=== PATIENT | female | born 1985 | race Caucasian/White ===

== ENCOUNTER 2017-05-12 09:32 | Emergency (ER) | payer BC, OTHER ==
[2017-05-12 09:39] VITALS: BP 102/54
--- NOTE | 2017-05-12 10:13 | UC ---
Lower Extremity/Ankle HPI - HPI Summary HPI Summary: 31 y/o female presents to the urgent care c/o RT ankle pain s/p twisting her ankle after feeding her baby at 0400 am. Pain now is 6/10 specially w/ ambulation and swelling. Pt took an Advil after it happened which helped w/ her pain. Pt is walking with the help of a cane. Pt denies SOB, chest pain, fever, N/V/D. - History of Current Complaint Chief Complaint: UCLowerExtremity Stated Complaint: ANKLE INJURY Time Seen by Provider: 05/12/17 10:10 Hx Obtained From: Patient Hx Last Menstrual Period: nursing ?: No Onset/Duration: Sudden Onset, Lasting Hours, Still Present Severity Initially: Moderate Severity Currently: Moderate Pain Intensity: 6 Pain Scale Used: 0-10 Numeric Aggravating Factor(s): Ambulation Alleviating Factor(s): Rest Able to Bear Weight: Yes - Risk Factors Gout Risk Factors: Negative DVT Risk Factors: Negative Septic Arthritis Risk Factor: Negative - Allergies/Home Medications Allergies/Adverse Reactions: Allergies Allergy/AdvReac Type Severity Reaction Status Date / Time Doxycycline Allergy Intermediate Rash Verified 07/15/16 09:04 PMH/Surg Hx/FS Hx/Imm Hx Previously Healthy: Yes - Surgical History Surgical History: None - Family History Known Family History: Positive: Hypertension, Diabetes - Social History Occupation: Unemployed Lives: With Family Alcohol Use: None Substance Use Type: None Smoking Status (MU): Never Smoked Tobacco Have You Smoked in the Last Year: No - Immunization History Most Recent Influenza Vaccination: 07/09/16 Most Recent Tetanus Shot: 04/24/16 Most Recent Pneumonia Vaccination: none Review of Systems Constitutional: Negative Skin: Negative Eyes: Negative ENT: Negative Respiratory: Negative Cardiovascular: Negative Gastrointestinal: Negative Genitourinary: Negative Motor: Negative Neurovascular: Negative Musculoskeletal: Other: - RT ankle pain s/p twisting ankle Neurological: Negative Psychological: Negative All Other Systems Reviewed And Are Negative: Yes Physical Exam Triage Information Reviewed: Yes Appearance: Well-Appearing, No Pain Distress, Well-Nourished, Cachectic Vital Signs: Initial Vital Signs Temp 98 F 05/12/17 09:36 Pulse 63 05/12/17 09:36 Resp 16 05/12/17 09:36 BP 102/54 05/12/17 09:36 Pulse Ox 100 05/12/17 09:36 Vital Signs Reviewed: Yes Eye Exam: Normal Eyes: Positive: Conjunctiva Clear - PERRLA, EOMI, findi grossly normal ENT Exam: Normal ENT: Positive: Normal ENT inspection, Hearing grossly normal, Pharynx normal, TMs normal Dental Exam: Normal Neck exam: Normal Neck: Positive: Supple, Nontender, No Lymphadenopathy Respiratory Exam: Normal Respiratory: Positive: Chest non-tender, Lungs clear, Normal breath sounds Cardiovascular Exam: Normal Cardiovascular: Positive: RRR, No Murmur, Pulses Normal, Brisk Capillary Refill Abdominal Exam: Normal Abdomen Description: Positive: Nontender, No Organomegaly, Soft. Negative: CVA Tenderness (R), CVA Tenderness (L) Bowel Sounds: Positive: Present Musculoskeletal: Positive: Strength Intact, ROM Limited @ - RT ankle w/ tenderness and edema on palpation over the lateral malleolus and above the tallus bone. Limited ROM due to pain, Positive sensation and capillary refill and pulses are WNL. Neurological Exam: Normal Psychological Exam: Normal Skin Exam: Normal Lower Extremity Course/Dx - Course Course Of Treatment: 31 y/o female presents to the urgent care c/o RT ankle pain s/p twisting her ankle after feeding her baby at 0400 am. Hx obtained. PE abnormal findings:RT ankle w/ tenderness and edema on palpation over the lateral malleolus and above the tallus bone. Limited ROM due to pain, Positive sensation and capillary refill and pulses are WNL. RT ankle X-ray ordered, Impression: normal radiograh. Pt's ankle immobilized w/ an ankle soft gel splint and given crutches. Advised RICE and if symptoms do not improve to f/u with PCP or orthopedic in 1 week. Pt understood and agreed and left the clinic ambulating w/ the help of crutches - Differential Dx/Diagnosis Differential Diagnosis/HQI/PQRI: Contusion, Dislocation, Fracture (Closed), Sprain, Strain Provider Diagnoses: 1- RT ankle sprain Discharge - Discharge Plan Condition: Stable Disposition: HOME Prescriptions: Ibuprofen TAB* [Motrin TAB* 800 MG] 800 mg PO Q6H #30 tab Patient Education Materials: Ankle Sprain (ED) Referrals: [facility] – [place] [facility] [Outside] - 1 Week Monty Fuentes MD [Medical Doctor] - If Needed No Primary Care Phys,NOPCP [Primary Care Provider] - Additional Instructions: 1- Please take ibuprofen q6-8hrs prn after meals for 2-3 days to alleviate pain and swelling. 2-continue placing ice, rest and elevate leg. 3- f/u with PCP on orthopedic in 1 week if symptoms persist.
[2017-05-12] MEDS ORDERED: Ibuprofen TAB* 400 MG PO ONE (10:22)
--- NOTE | 2017-05-12 10:56 | RAD ---
INDICATION: Right ankle pain after a fall COMPARISON: None. TECHNIQUE: 3 views of the right ankle were obtained. FINDINGS: The bones are normal alignment. Joint spaces appear maintained. No fracture is seen. IMPRESSION: Normal ankle radiograph. If the patient's symptoms persist, follow-up imaging is recommended.
== END 2017-05-12 11:19 | disposition home or self-care (01) ==
LOC: UCEAST 09:32
DX: S93.401A Sprain of unspecified ligament of right ankle, initial encounter (principal); X50.1XXA Overexertion from prolonged static or awkward postures, initial encounter; Y93.9 Activity, unspecified; Y92.9 Unspecified place or not applicable; Z88.1 Allergy status to other antibiotic agents
CPT/HCPCS: 99213; A9270-GY; G0463